=== PATIENT | male | born 1950 | race Caucasian/White ===

== ENCOUNTER 2022-08-09 08:47 | Inpatient (IN) | payer MEDICARE, OTHER ==
[2022-08-08 11:43] VITALS: BMI 28.0
[2022-08-09] MEDS ORDERED: HYDROcodone/Acetaminophen 7.5/325 mg Tablet PO PRN (10:40)
[2022-08-09] MEDS ORDERED: Promethazine HCl 25 MG/ML VIAL IM PRN ×2 (10:40→18:18)
[2022-08-09] MEDS ORDERED: Ondansetron PF 4 MG/2 ML Vial IVP PRN (10:40)
[2022-08-09] MEDS ORDERED: Bisacodyl 10 MG SUPP PR PRN (10:40)
[2022-08-09] MEDS ORDERED: diphenhydrAMINE 50 MG/ML VIAL IVP PRN (10:40)
[2022-08-09] MEDS ORDERED: Mag-Al 1200 mg/1200 mg/30 ML UDCUP PO PRN (10:40)
[2022-08-09] MEDS ORDERED: Acetaminophen 325 MG TAB PO PRN (10:40)
[2022-08-09] MEDS ORDERED: Milk Of Magnesia 30 ML UDCUP PO PRN (10:40)
[2022-08-09] MEDS ORDERED: Neomycin-Polymyxin 1 ML AMP ONE (10:46)
[2022-08-09] MEDS ORDERED: Bupivacaine HCl 0.5%/Epinephrine 1:200,000/PF 30 ml Vial ONE (10:46)
[2022-08-09] MEDS ORDERED: Thrombin 5000 UNITS/5 ML VIAL ONE (10:46)
[2022-08-09] MEDS ORDERED: fentaNYL Citrate/PF 100 MCG/2 ML SYRINGE ONE (11:20)
[2022-08-09] MEDS ORDERED: HYDROmorphone 0.5 MG/0.5 ML SYRINGE ONE ×2 (11:20→11:21)
[2022-08-09] MEDS ORDERED: CEFAZOLIN 2 GM VIAL ONE (11:22)
[2022-08-09] MEDS ORDERED: Sodium Chloride 0.9% 100 ML ONE (11:22)
[2022-08-09] MEDS ORDERED: Rocuronium Bromide 10 MG/ML (10ML VIAL) ONE (11:31)
[2022-08-09] MEDS ORDERED: ePHEDrine 50 MG/ML VIAL ONE (11:31)
[2022-08-09] MEDS ORDERED: Lidocaine 1% MPF 2 ML VIAL ONE (11:31)
[2022-08-09] MEDS ORDERED: PROPOFOL 200 MG/20 ML VIAL ONE (11:31)
[2022-08-09] MEDS ORDERED: Esmolol 100 MG/10 ML VIAL ONE (11:31)
[2022-08-09] MEDS ORDERED: Ondansetron PF 4 MG/2 ML Vial ONE (11:31)
[2022-08-09] MEDS ORDERED: Rocuronium Bromide 50 MG/5 ML VIAL ONE (15:41)
[2022-08-09] MEDS ORDERED: SUGAMMADEX SODIUM 200 MG/2 ML VIAL ONE (17:04)
[2022-08-09] MEDS ORDERED: Fentanyl 100 MCG/2 ML VIAL ONE ×2 (17:52→18:15)
[2022-08-09] MEDS ORDERED: Promethazine HCl 25 MG/ML VIAL IVPB PRN (18:18)
[2022-08-09] MEDS ORDERED: Ondansetron HCl/PF 4 MG/2 ML Vial IVP PRN (18:18)
[2022-08-09] MEDS ORDERED: HYDROmorphone 2 MG/ML VIAL SLOW IVP PRN (18:18)
[2022-08-09] MEDS: Morphine 2 MG/ML VIAL SLOW IVP PRN (19:28)
[2022-08-09] MEDS: CEFAZOLIN 2 GM in Sodium Chloride 0.9% 100 ML IVPB SCH (19:28)
[2022-08-09] MEDS: Sodium Chloride 0.9% 1,000 ML IV SCH ×2 (19:37→23:17)
[2022-08-09] MEDS: HYDROcodone/Acetaminophen 10/325 mg Tablet PO PRN (19:45)
[2022-08-09] MEDS: Cyclobenzaprine 10 MG TAB PO PRN (20:45)
[2022-08-09] MEDS ORDERED: Hydrochlorothiazide 25 MG TAB PO PRN (21:06)
[2022-08-09] MEDS ORDERED: Gabapentin 300 MG CAP PO PRN (21:06)
[2022-08-09] MEDS: Acetaminophen/Codeine 30-300mg Tablet PO PRN (22:00)
[2022-08-10] MEDS: Morphine 2 MG/ML VIAL SLOW IVP PRN ×3 (00:53→08:02)
[2022-08-10] MEDS: CEFAZOLIN 2 GM in Sodium Chloride 0.9% 100 ML IVPB SCH (03:25)
[2022-08-10] MEDS: HYDROcodone/Acetaminophen 10/325 mg Tablet PO PRN ×2 (03:25→08:02)
[2022-08-10] MEDS ORDERED: Tamsulosin HCl 0.4 MG CAP PO SCH (06:00)
[2022-08-10] MEDS: Atenolol 25 MG TAB PO SCH (08:03)
[2022-08-10] MEDS: Losartan 25 MG TAB PO SCH (08:03)
[2022-08-10] MEDS: Rosuvastatin 20 MG TAB PO SCH (08:03)
[2022-08-10] MEDS: Tamsulosin HCl 0.4 MG CAP PO SCH (08:04)
[2022-08-10] MEDS: HYDROcodone/Acetaminophen 7.5/325 mg Tablet PO PRN ×3 (11:47→20:34)
[2022-08-10] MEDS ORDERED: HumaLOG 300 UNITS/3 ML VIAL SC PRN (14:50)
[2022-08-10] MEDS ORDERED: Dextrose 50% Abboject 50 ML SYRINGE SLOW IVP PRN (14:50)
[2022-08-10] MEDS ORDERED: Dextrose 5% in Water 1,000 ML IV PRN (14:50)
[2022-08-10] MEDS: Sodium Chloride 0.9% 1,000 ML IV SCH (15:03)
[2022-08-10] MEDS: Acetaminophen/Codeine 30-300mg Tablet PO PRN ×2 (18:40→23:36)
[2022-08-10] MEDS: Cyclobenzaprine 10 MG TAB PO PRN (20:35)
[2022-08-10] MEDS ORDERED: INSULIN GLARGINE HUM REC ANLOG SC SCH (21:00)
[2022-08-11] MEDS: Sodium Chloride 0.9% 1,000 ML IV SCH (03:06)
[2022-08-11] MEDS: Acetaminophen/Codeine 30-300mg Tablet PO PRN (06:11)
[2022-08-11] MEDS: HYDROcodone/Acetaminophen 7.5/325 mg Tablet PO PRN ×2 (08:27→12:32)
[2022-08-11] MEDS: Losartan 25 MG TAB PO SCH (08:28)
[2022-08-11] MEDS: Rosuvastatin 20 MG TAB PO SCH (08:28)
[2022-08-11] MEDS: Tamsulosin HCl 0.4 MG CAP PO SCH (08:28)
[2022-08-11] MEDS: Atenolol 25 MG TAB PO SCH (08:28)
[2022-08-11] MEDS ORDERED: Empagliflozin 25 MG TAB PO SCH (09:00)
[2022-08-11 12:40] VITALS: BP 115/63; TEMP 97.2
== END 2022-08-11 12:40 | disposition home or self-care (01) | DRG 455 ==
LOC: SDC 08:47 → SURG A 18:51
PROVIDERS: ADMIT Neurological Surgery; ATTEND Neurological Surgery
PROC: 0SG00AJ Fusion of Lumbar Vertebral Joint with Interbody Fusion Device, Posterior Approach, Anterior Column, Open Approach (ICD-10-PCS; principal; 2022-08-09)
PROC: 0SG0071 Fusion of Lumbar Vertebral Joint with Autologous Tissue Substitute, Posterior Approach, Posterior Column, Open Approach (ICD-10-PCS; 2022-08-09)
PROC: 0SB20ZZ Excision of Lumbar Vertebral Disc, Open Approach (ICD-10-PCS; 2022-08-09)
PROC: 01NB0ZZ Release Lumbar Nerve, Open Approach (ICD-10-PCS; 2022-08-09)
PROC: 01NR0ZZ Release Sacral Nerve, Open Approach (ICD-10-PCS; 2022-08-09)
DX: M48.062 Spinal stenosis, lumbar region with neurogenic claudication (principal); Z20.822 Contact with and (suspected) exposure to COVID-19; E11.9 Type 2 diabetes mellitus without complications; I10 Essential (primary) hypertension; M43.16 Spondylolisthesis, lumbar region; M53.2X6 Spinal instabilities, lumbar region; M70.62 Trochanteric bursitis, left hip; M70.61 Trochanteric bursitis, right hip; I25.10 Atherosclerotic heart disease of native coronary artery without angina pectoris; E78.5 Hyperlipidemia, unspecified; K21.9 Gastro-esophageal reflux disease without esophagitis; N40.0 Benign prostatic hyperplasia without lower urinary tract symptoms; Z95.1 Presence of aortocoronary bypass graft; Z82.3 Family history of stroke; Z82.49 Family history of ischemic heart disease and other diseases of the circulatory system; Z80.9 Family history of malignant neoplasm, unspecified; Z79.899 Other long term (current) drug therapy; Z79.82 Long term (current) use of aspirin; Z88.1 Allergy status to other antibiotic agents; Z88.2 Allergy status to sulfonamides; Z79.4 Long term (current) use of insulin; Z79.84 Long term (current) use of oral hypoglycemic drugs; Z85.828 Personal history of other malignant neoplasm of skin; Z87.442 Personal history of urinary calculi; Z98.890 Other specified postprocedural states
CPT/HCPCS: 36416; 76000; 80048; 85027; 85610; 85730; 87811; C1713; C1768; C1776; J0690; J1170; J2270; J2405; J2704; J3010; J3370; J3490; J7050